=== PATIENT | female | born 1985 | race Caucasian/White ===

== ENCOUNTER 2023-07-30 22:11 | Emergency (ER) | payer OTHER, SELFPAY ==
[2023-07-30 22:14] VITALS: BP 138/93; BMI 29.8
[2023-07-30 22:25] LABS: % Basophils 0.1 % (0-2); % Eosinophils 0.5 % (0-6); % Immature Granulocytes 0.3 % (0-0.5); % Lymphocytes 2.3 % (20.5-51.1); % Monocytes 4.6 % (1.7-9.3); % Neutrophils 92.2 % (42.2-75.2); Absolute Eosinophils 0.1 10^3/uL (0-0.7); Absolute Lymphocytes 0.2 10^3/uL (1.2-3.4); Absolute Monocytes 0.5 10^3/uL (0.1-0.6); Absolute Neutrophils 9.5 10^3/uL (1.4-6.5); Hematocrit 39.4 % (37.0-47.0); Hemoglobin 12.6 g/dL (12.0-16.0); Mean Corpuscular Volume 84.5 fL (81.0-99.0); Mean Platelet Volume 9.4 fL (7.4-10.4); Nucleated Red Blood Cells % 0 %; Platelet Count 221 10^3/uL (130-400); Red Blood Cell Count 4.66 10^6/uL (4.20-5.40); Red Cell Dist. Width 15.3 % (11.5-14.5); White Blood Cell Count 10.3 10^3/uL (4.8-10.8)
[2023-07-30 22:39] LABS: ALT (SGPT) 21 U/L (0-35); AST (SGOT) 25 U/L (14-36); Albumin 4.7 g/dl (3.5-5.0); Alkaline Phosphatase 71 U/L (38-126); Blood Urea Nitrogen 29 mg/dl (7-17); Calcium 10.1 mg/dl (8.4-10.2); Carbon Dioxide 23 mmol/L (22-30); Chloride 109 mmol/L (98-107); Estimated Creatinine Clearance 88 ml/min; Glucose 118 mg/dl (70-99); Lipase 82 U/L (23-300); Potassium 4.8 mmol/L (3.5-5.1); Sodium 139 mmol/L (135-145); Total Bilirubin 0.5 mg/dl (0.2-1.3); Total Protein 7.3 g/dl (6.3-8.2); eGFR > 60.00
--- NOTE | 2023-07-30 22:53 | ED.GENMED ---
History of Present Illness
General
Chief Complaint: Abdominal Pain
Source: patient
Exam Limitations: none
Time Seen by Provider: 07/30/23 22:26
Travel History
Have you had any contact with someone who has COVID-19?: No
Do you have any symptoms of coronavirus? Fever > 100 degrees, chills, cough, shortness of breath, sore throat, loss of taste or smell, muscle aches, or headache?: No
History of Present Illness
History of Present Illness:
This is a 37 year old female that comes in with c/o vomiting and diarrhea. States that this started at 6pm tonight. States that she has upper abd pain that goes into her back. States that this is not like the viral Gi bug as the pain has been
constant. States that she has had chills and slight headache. Denies any fever, chest pain, SOB, dizziness, urinary burning.
Past History
Past History
ED Past Medical History: HTN and Other (Polycystic kidney disease)
ED Past Surgical History: , Urological (Bilateral Nephrectomy, Kidney transplant) and Other (Hernia repair)
Social History
Tobacco: Non-smoker
Alcohol: None
Personal: Single
Living: with family
Review of Systems
Review of Systems
All Other Systems: ROS reviewed and negative except as documented in HPI and ROS
Constitutional: Reports chills; Denies fever
EENT: Reports no symptoms
Respiratory: Reports no symptoms; Denies cough or trouble breathing
Cardiac: Reports no symptoms; Denies chest pain
ABD/GI: Reports abdominal pain, nausea, vomiting and diarrhea
: Reports no symptoms; Denies dysuria, frequency or urgency
Musculoskeletal: Reports no symptoms
Skin: Reports no symptoms
Neurological: Reports headache; Denies dizzy
Psychiatric: Reports no symptoms
Phy Exam
General Physical Exam
General Presentation: mild distress
General age: appears stated age
General Skin: warm and dry
General Habitus: normal
General Mental: alert
General Hydration: dry mucous membranes
ENT Exam
ENT Exam: TM's normal, pharynx normal and neck supple
Eye Exam
Eye Exam: EOMI
Cardiovascular Exam
Cardiovascular Exam: regular rate/rhythm, no edema and normal peripheral pulses
Pulmonary Exam
Pulmonary Exam: lungs clear, no respiratory distress, no rales, chest non tender, no crackles, no rhonchi, no wheezing and no cough
Gastrointestinal Exam
Gastrointestinal Exam: normal bowel sounds, soft, no organomegaly, no pulsatile mass, non distended and tender (Epigastric and right upper abd tenderness with palpation)
Musculoskeletal Exam
Musculoskeletal Exam: full ROM and no edema
Skin Exam
Skin Exam: normal color, warm/dry, no rash and no petechia
Psychiatric Exam
Psychiatric Exam: normal mood/affect
Course
Orders/Labs/Results
Orders:
Orders
07/30/23 22:20
Complete Blood Count/With Diff Urgent
Comprehensive Metabolic Panel Urgent
HCG, Serum Qualitative Screen Urgent
Comment: ADD ON
Lipase Urgent
07/30/23 22:46
Urinalysis Reflex To Culture Urgent
Date Specimen was Collected: 07/30/23
Time Specimen was Collected: 22:44
Urine Microscopic Reflex Cult Urgent
07/30/23 22:52
HYDROmorphone [Dilaudid] 1 mg IV NOW STA
Ondansetron Injectable [Zofran] 4 mg IV NOW STA
Pantoprazole [Protonix IV] 40 mg IV NOW STA
07/30/23 22:55
Add On- LAB Urgent
Tests Added?: HCG
07/30/23 23:52
Diphenhydramine [Benadryl] 25 mg IV NOW STA
Prochlorperazine [Compazine] 5 mg IV NOW STA
07/31/23 00:00
US Abdomen Complete/Upper Urgent
Reason For Exam: Uppper abd pain.
Abnormal Lab Results
07/30/23 07/30/23
22:20 22:46
MCHC 32.0 L g/dL
(33.0-37.0)
RDW 15.3 H %
(11.5-14.5)
Absolute Neuts (auto) 9.5 H 10^3/uL
(1.4-6.5)
Absolute Lymphs (auto) 0.2 L 10^3/uL
(1.2-3.4)
Neutrophils % 92.2 H %
(42.2-75.2)
Lymphocytes % 2.3 L %
(20.5-51.1)
Chloride 109 H mmol/L
(98-107)
BUN 29 H mg/dl
(7-17)
Glucose 118 H mg/dl
(70-99)
Urine Ketones 1+ A
(Negative)
Ur Occult Blood Reflex 1+ A
(Negative)
Leukocyte Esterase Rfl Trace A
(Negative)
Urine RBC 3-6 A /HPF
(0-2)
07/30/23 22:20
07/30/23 22:20
Chloride slightly elevated. Dehydration. Glucose nonfasting. Lipase normal at 82
Vital Signs
Initial and Last Documented VS:
Initial Vital Signs
Temp Pulse Resp BP Pulse Ox
97.5 F 103 18 138/93 99
07/30/23 22:14 07/30/23 22:14 07/30/23 22:14 07/30/23 22:14 07/30/23 22:14
Last Documented Vital Signs
Temp Pulse Resp BP Pulse Ox
97.5 F 103 18 138/93 99
07/30/23 22:14 07/30/23 22:14 07/30/23 22:14 07/30/23 22:14 07/30/23 22:14
MDM/Problems Addressed
Differential Diagnosis Includes:
gallbladder disease. Renal calculus, Gastritis
MDM/Problems Addressed:
This is a 37 year old female that comes in with c/o upper abd pain. States that this started at 6pm and is not going away. State that she has vomiting and diarrhea.
Will check labs. US and medicate for pain.
Back into see patient. patient states that she is feeling better. Explained that her blood work did show dehydration. Patient to increase her water intake to 8-8oz glasses daily. Explained that this could be a viral GI syndrome. Patient will be
given Zofran to help with the nausea at home. Offered patient a CT scan but patient did not feel that this was necessary. Patient to follow up with the family doctor. Return with any concerns.
Chronic conditions affecting care: Kidney disease (Polycystic kidney disease. Kidney transplant)
Acute Exacerbation and/or Progression of Chronic Illness:
NA
*Radiology
Radiology exam reviewed: radiology read reviewed (US-Normal gallbdder. No sludge or gallstones. Negative Talley's sign. No biliary ductal dilation. Polycystic liver, Absent kidneys. Normal spleen. No frree fluid. )
*Pulse Oximetry
Patient hypoxic: no
*EKG
Interpreted by ED Provider?: NA
Rate: EKG- N/A
*Leveling Machine Operator Interpretation
Rate: Leveling Machine Operator- N/A
*Critical Care Note
Total Time (30-74mins, 75-104mins- exclusive of procedures): Not Applicable
ED Attending Note
-
Portions of this chart may have been created with voice recognition software.� Occasional wrong word or��sound alike� substitutions may have occurred due to the inherent limitations of voice recognition software.
Discharge Plan
Departure
Patient Disposition: Home (Routine Discharge)
Date of Disposition: 07/31/23
Time of Disposition: 01:03
Patient with high blood pressure during this ER visit?: Yes
Condition: Good
Covid-19: Not Applicable
Discharge Problem:
Nausea & vomiting, Abdominal pain
Instructions: Nausea and Vomiting, Adult (DC), Abdominal Pain, BLOOD PRESSURE
Prescriptions:
New
ondansetron 4 mg tablet,disintegrating
4 mg PO Q8H PRN (Reason: nausea and vomiting) Qty: 7 0RF
No Action
mycophenolate mofetil 250 mg Capsule
750 mg PO BID
therapeutic multivitamin Tablet
1 tab PO HS
levothyroxine 25 mcg Tablet
25 mcg PO DAILY
benzonatate 100 mg Capsule
100 mg PO TID PRN (Reason: cough)
labetalol 100 mg Tablet
200 mg PO BID
tacrolimus 1 mg Capsule
3 mg PO BID
Phospha 250 Neutral 250 mg tablet
1 tab PO DAILY
Slow-Mag 71.5 mg Tablet,Delayed Release (Dr/Ec)
71.5 mg PO BID
cefdinir 300 mg Capsule
300 mg PO Q12 Qty: 11 0RF
azithromycin [Zithromax Z-Marco] 250 mg tablet
250 mg PO DAILY 6 Days Qty: 6 0RF
codeine-guaifenesin 10-100 mg/5 mL Liquid
5 ml PO HS Qty: 118 0RF
Referrals:
Eva Jimenez, [Family Provider] - Follow up in 2-3 days
Activity Restrictions/Additional Instructions:
As discussed, your blood work shows that you are dehydrated. Please increase your water intake to 8-8oz glasses daily. This is most likely a viral syndrome. You have been given a prescription for Zofran that will help with the nausea and vomiting.
This was sent to your Pharmacy. Follow up with the family doctor for recheck and your Surgeons. IF YOU HAVE INCREASED OR CHANGING PAIN, OR YOU HAVE ANY OTHER CONCERNS PLEASE RETURN TO THE EMERGNCY ROOM.
Interventions
Interventions:
*Risk Screen - Suicide Last Done: 07/30/23 22:17
*General Assessment Last Done: 07/30/23 22:17
*Neglect/Abuse Screening Last Done: 07/30/23 22:17
*ED COVID-19 Vaccine History Last Done: 07/30/23 22:17
PN-Gmguln-Eakkvipigw Assessment Last Done: 07/30/23 22:30
Discharge Date and Time
Print Language: YI
[2023-07-30 22:57] LABS: Urine Albumin Negative (Neg - Trace); Urine Bilirubin Negative (Negative); Urine Character Clear (Clear); Urine Color Yellow; Urine Glucose Negative (Negative); Urine Ketone 1+ (Negative); Urine Leukocyte Trace (Negative); Urine Nitrite Negative (Negative); Urine Occult Blood 1+ (Negative); Urine Urobilinogen Negative (Neg - 1+)
[2023-07-30 23:06] LABS: Urine Squamous Cell >30 /LPF (Few)
[2023-07-30] MEDS: DILAUDID 1 MG IV (23:06)
[2023-07-30] MEDS: ZOFRAN 4 MG IV (23:06)
[2023-07-30] MEDS: PROTONIX IV 40 MG IV (23:06)
[2023-07-30 23:14] LABS: HCG, Serum Qualitative Screen Negative
[2023-07-31] MEDS: BENADRYL 25 MG IV (00:01)
[2023-07-31] MEDS: COMPAZINE 5 MG IV (00:01)
[2023-07-31 01:18] VITALS: BP 146/94
== END 2023-07-31 01:18 | disposition home or self-care (01) ==
LOC: EMR 22:11
PROVIDERS: Clinical Nurse Specialist Family Health; Emergency Medicine; EMERGENCY PHYSICIAN Student in an Organized Health Care Education/Training Program; FAMILY PHYSICIAN Family Medicine
DX: R11.2 Nausea with vomiting, unspecified (principal); R10.9 Unspecified abdominal pain; R19.7 Diarrhea, unspecified; E86.0 Dehydration; I10 Essential (primary) hypertension; Q61.3 Polycystic kidney, unspecified; Z90.5 Acquired absence of kidney; Z94.0 Kidney transplant status
CPT/HCPCS: 99284; 96374; 96375; 76700; 80053; 81003; 81015; 83690; 84703; 85025